=== PATIENT | male | born 1970 | race Two or more races ===

== ENCOUNTER 2018-08-14 00:02 | Emergency (ER) | payer BC ==
[~2018-08-14] VITALS: Ht 172.7 cm; Wt 97.5 kg
[2018-08-14] MEDS ORDERED: HCG (00:24)
[2018-08-14] MEDS ORDERED: B12 INJECTIONS (00:24)
[2018-08-14] MEDS ORDERED: [UNRECOGNIZED DRUG - OTHER] (00:24)
[2018-08-14] MEDS ORDERED: IV NORMAL SALINE 1000 ML BAG IV ONE ×2 (00:45→02:45)
[2018-08-14] MEDS ORDERED: ONDANSETRON IV *ER 4 MG/2 ML VIAL IV ONE (00:45)
[2018-08-14] MEDS ORDERED: ATROPINE SULFATE 1 MG/10 ML DISP.SYRIN IV ONE (00:45)
[2018-08-14] MEDS ORDERED: diphenhydrAMINE 50 MG/1 ML VIAL IV ONE (00:45)
[2018-08-14] MEDS ORDERED: KETOROLAC TROMETHAMINE 30 MG INJ IVP ONE (00:45)
[2018-08-14] MEDS ORDERED: KETOROLAC TROMETHAMINE 30 MG INJ ONE (00:49)
[2018-08-14] MEDS ORDERED: ATROPINE SULFATE 1 MG/10 ML DISP.SYRIN ONE (00:49)
[2018-08-14] MEDS ORDERED: diphenhydrAMINE 50 MG/1 ML VIAL ONE (00:49)
[2018-08-14] MEDS ORDERED: ONDANSETRON 4 MG/2 ML VIAL ONE (00:49)
[2018-08-14 00:59] LABS: CREATININE 1.5 mg/dL (0.6-1.3); POTASSIUM 4.4 mmol/L (3.5-5.1)
[2018-08-14 01:05] LABS: BILIRUBIN,DIRECT 0.3 mg/dL (0.0-0.2); BILIRUBIN,TOTAL 1.4 mg/dL (0.2-1.0); TOTAL PROTEIN, SERUM 8.1 g/dL (6.4-8.2)
[2018-08-14 01:09] LABS: BASOPHILS % (AUTO) 0.1 % (0.0-2.0); EOSINOPHILS % (AUTO) 0.2 % (0.0-7.0); HEMATOCRIT 54.1 % (36.7-47.1); HEMOGLOBIN 18.1 g/dL (12.5-16.3); LYMPHOCYTES # (AUTO) 0.5 K/uL (20.0-40.0); LYMPHOCYTES % (AUTO) 5.6 % (20.5-51.5); MEAN CORPUSCULAR HEMOGLOBIN 27.4 uug (23.8-33.4); MEAN CORPUSCULAR HGB CONC 34 g/dL (32.5-36.3); MEAN CORPUSCULAR VOLUME 81.8 fL (73.0-96.2); MONOCYTES # (AUTO) 0.5 K/uL (2.0-10.0); MONOCYTES % (AUTO) 5.1 % (0.0-11.0); PLATELET COUNT (AUTO) 251 K/uL (152-348)
[2018-08-14 01:13] LABS: RED BLOOD CELL COUNT(AUTO) 6.62 MIL/uL (4.06-5.63)
--- NOTE | 2018-08-14 02:01 | NUR ---
Pt. resting in bed w/ eyes closed, IV patent and infusing, NAD
--- NOTE | 2018-08-14 02:02 | NUR ---
Pt. ambulated into ED w/ c/o N/V/D since 1300 today, denies SOB/CP/GARCÍA, RR even and unlabored, speaks in clear and complete sentences, abd. S/R/T/D, BS active x 4 quads, bed in low position, emesis bag given,
--- NOTE | 2018-08-14 03:38 | NUR ---
Patient discharged to home in stable conditon. Written and verbal after care instructions given. Patient verbalizes understanding of instructions. Pt. d/c w/ prescription per MD order, d/c papers signed, all belongings w/ pt., ID band/IV removed, ambulated off unit w/ steady gait, VSS, NAD
== END 2018-08-14 03:40 | disposition home or self-care (01) ==
LOC: ER 00:05
DX: R11.2 Nausea with vomiting, unspecified (principal); R10.84 Generalized abdominal pain; R19.7 Diarrhea, unspecified; N28.9 Disorder of kidney and ureter, unspecified; Z79.899 Other long term (current) drug therapy
CPT/HCPCS: 36415; 80048; 80076; 83690; 84443; 85025; 96361; 96374; 96375; 99283; J0461; J1200; J1885; J2405; A4663; J7030

== ENCOUNTER 2018-11-22 00:56 | Emergency (ER) | payer BC ==
[~2018-11-22] VITALS: Ht 172.7 cm; Wt 99.8 kg
[~2018-11-22 00:56] MED LIST: B12 INJECTIONS; HCG; [UNRECOGNIZED DRUG - OTHER]
[2018-11-22] MEDS ORDERED: ONDANSETRON 4 MG/2 ML VIAL IM ONE (01:15)
[2018-11-22] MEDS ORDERED: HYDROMORPHONE 1 MG/1 ML DISP.SYRIN IM ONE (01:15)
[2018-11-22] MEDS ORDERED: HYDROMORPHONE 1 MG/1 ML DISP.SYRIN ONE (01:29)
[2018-11-22] MEDS ORDERED: ONDANSETRON 4 MG/2 ML VIAL ONE (01:29)
[2018-11-22] MEDS ORDERED: OXYCODONE/APAP 5-325 MG TABLET ONE (01:54)
[2018-11-22] MEDS ORDERED: OXYCODONE/APAP 5-325 MG TABLET PO ONE (02:00)
--- NOTE | 2018-11-22 02:00 | NUR ---
Patient is AOx4, speaking in complete sentences, speech is clear. Able to follow /comprehend directions. Gait is stable. No cardiovascular distress noted. Rate/rhythm regular. No CP. No respiratory distress noted. Respirations even , unlabored, symmetrical chest rise. No adventitious sounds noted. Chief complaint: Patient comes in FROM HOME C/O LOWER BACK PAIN RADIATING TO COCCYX for 2DAYS, STATES HE TOOK [employer] AND OVEREXERTED HIMSELF. +guarding/rubbing of site, +moaning, +grimacing, pain gets worse upon ambulation, changing position, Denies radiculopathies nor paresthesias to lower extremities.Continent of bowel and bladder function. Denies Fever/Chills. No recent travel. No pertinent medical history, denies prior surgeries to the site/NKDA. + ETOH / -recreational drug use SAFETY Patient in bed, bed in lowest position. Siderails up x 2. Call light within reach. Will continue to monitor accordingly Pt denies fever chills headache dyspnea chest pain nausea vomiting diarrhea dysuria
--- NOTE | 2018-11-22 02:27 | NUR ---
Patient discharged to home in stable conditon. Written and verbal after care instructions given. Patient verbalizes understanding of instructions. +antalgic gait, pain decreased to 6/10 all belongings with patient
[2018-11-22 02:28] VITALS: BP 124/67
== END 2018-11-22 01:50 | disposition home or self-care (01) ==
LOC: ER 00:59
DX: M54.42 Lumbago with sciatica, left side (principal); E78.00 Pure hypercholesterolemia, unspecified; Z79.899 Other long term (current) drug therapy
CPT/HCPCS: 96372 ×2; 99283; J1170; J2405; A4663

== ENCOUNTER 2024-03-29 19:24 | Emergency (ER) | payer BC ==
[~2024-03-29] VITALS: Ht 175.3 cm; Wt 88.5 kg
[2024-03-29] MEDS ORDERED: ONDANSETRON 4 MG/2 ML VIAL ONE (20:00)
[2024-03-29 20:03] LABS: BASOPHILS % (AUTO) 0.2 % (0.0-2.0); EOSINOPHILS % (AUTO) 0.3 % (0.0-7.0); HEMATOCRIT 53.1 % (36.7-47.1); HEMOGLOBIN 17.8 g/dL (12.5-16.3); LYMPHOCYTES # (AUTO) 0.6 K/uL (0.8-4.8); LYMPHOCYTES % (AUTO) 8.3 % (20.5-51.5); MEAN CORPUSCULAR HEMOGLOBIN 29.7 uug (23.8-33.4); MEAN CORPUSCULAR HGB CONC 34 g/dL (32.5-36.3); MEAN CORPUSCULAR VOLUME 88.5 fL (73.0-96.2); MONOCYTES # (AUTO) 0.4 K/uL (0.1-1.30); MONOCYTES % (AUTO) 5.4 % (0.0-11.0); NEUTROPHILS # (AUTO) 5.8 K/uL (1.8-8.9); NEUTROPHILS % (AUTO) 85.8 % (38.5-71.5); PLATELET COUNT (AUTO) 234 K/uL (152-348); RED CELL DISTRIBUTION WIDTH 15.6 % (12.1-16.2); WHITE BLOOD COUNT (AUTO) 6.8 K/uL (3.6-10.2)
[2024-03-29] MEDS ORDERED: KETOROLAC TROMETHAMINE 30 MG INJ ONE (20:04)
[2024-03-29] MEDS: ONDANSETRON 4 MG/2 ML VIAL IV ONE (20:06)
[2024-03-29] MEDS: IV NORMAL SALINE 1000 ML BAG IV ONE ×2 (20:06→20:34)
[2024-03-29] MEDS: KETOROLAC TROMETHAMINE 15 MG INJ IVP ONE (20:07)
[2024-03-29 20:09] LABS: DIFFERENTIAL COMMENT 1
[2024-03-29 20:13] LABS: CREATININE 1.4 mg/dL (0.6-1.3); POTASSIUM 4.2 mmol/L (3.5-5.1)
[2024-03-29 20:19] LABS: ALBUMIN 3.4 g/dL (3.4-5.0); BILIRUBIN,DIRECT 0.3 mg/dL (0.0-0.2); BILIRUBIN,TOTAL 1.5 mg/dL (0.2-1.0)
[2024-03-29 21:55] VITALS: BP 145/78; TEMP 98; O2SAT 98
== END 2024-03-29 21:55 | disposition home or self-care (01) ==
LOC: ER 19:25
DX: Z13.89 Encounter for screening for other disorder (principal); E86.0 Dehydration; E11.9 Type 2 diabetes mellitus without complications; E78.00 Pure hypercholesterolemia, unspecified; Z20.822 Contact with and (suspected) exposure to COVID-19; G47.30 Sleep apnea, unspecified; K58.9 Irritable bowel syndrome, unspecified
CPT/HCPCS: 99284; 96374; 96361; 96375; 87426; 87804 ×2; 80076; 80048; 83690; 85025; 36415; J1885; J2405; J7040 ×2; A4606; A4663